=== PATIENT | male | born 2000 | race African-American/Black ===

== ENCOUNTER 2025-05-09 23:08 | Emergency (ER) | payer BC, OTHER ==
[~2025-05-09] VITALS: Ht 154.9 cm; Wt 59.4 kg
[2025-05-09] MEDS ORDERED: SIMETHICONE 80 MG TAB.CHEW ONE (23:58)
[2025-05-09] MEDS ORDERED: ACETAMINOPHEN 650 MG/20.3 ML LIQUID UDC ONE (23:58)
[2025-05-10] MEDS: SIMETHICONE 80 MG TAB.CHEW PO ONE (00:07)
[2025-05-10] MEDS: ACETAMINOPHEN 650 MG/20.3 ML LIQUID UDC PO ONE (00:07)
[2025-05-10 00:29] LABS: *BILIRUBIN,URIN NEGATIVE (NEGATIVE); *BLOOD, URINE NEGATIVE (NEGATIVE); *CLARITY,URINE CLEAR (CLEAR); *COLOR,URINE YELLOW (YELLOW); *KETONES,URINE NEGATIVE (NEGATIVE); *PROTEIN,URINE NEGATIVE (NEGATIVE); *UROBILINOGEN,URINE 0.2 E.U./dl (NORMAL); LEUKOCYTE ESTERASE ,URINE NEGATIVE (NEGATIVE); NITRITE, URINE NEGATIVE (NEGATIVE); UGLUCOSE NEGATIVE (NEGATIVE)
[2025-05-10 02:14] VITALS: BP 115/65; O2SAT 99
== END 2025-05-10 01:25 | disposition home or self-care (01) ==
LOC: ER 23:24
DX: R10.9 Unspecified abdominal pain (principal); F84.0 Autistic disorder; Q90.9 Down syndrome, unspecified
CPT/HCPCS: 76700; A4606; A4663